=== PATIENT | female | born 1955 | race African-American/Black ===

== ENCOUNTER 2018-12-01 13:31 | Emergency (ER) | payer MEDICAID ==
[~2018-12-01] VITALS: Ht 170.2 cm; Wt 118.0 kg
[2018-12-01 13:37] VITALS: BP 133/97
== END 2018-12-01 19:19 | disposition left against medical advice (07) ==
LOC: ER 13:31
DX: R10.30 Lower abdominal pain, unspecified (principal); Z53.21 Procedure and treatment not carried out due to patient leaving prior to being seen by health care provider

== ENCOUNTER 2019-04-23 03:36 | Emergency (ER) | payer MEDICAID ==
[~2019-04-23] VITALS: Ht 172.7 cm; Wt 100.0 kg
[2019-04-23 05:45] VITALS: BP 126/79
== END 2019-04-23 06:10 | disposition home or self-care (01) ==
LOC: ER 03:36
DX: M79.671 Pain in right foot (principal); I10 Essential (primary) hypertension; Z86.73 Personal history of transient ischemic attack (TIA), and cerebral infarction without residual deficits; Z88.0 Allergy status to penicillin
CPT/HCPCS: 73590; 73600; 73620; 99283